=== PATIENT | female | born 1955 | race Caucasian/White ===

== ENCOUNTER → 2017-01-02 | Day surgery (SDC) | payer OTHER ==
[~2017-01-02] MED LIST: Dexamethasone 20 MG/5 ML VIAL ONE; Fentanyl 100 MCG/2 ML VIAL ONE; Ferric Subsulfate 8 ML BOT ONE; Lidocaine 2% PF 10 ML AMP (For Epidural Use) ONE; Meperidine HCl/PF 25 MG/ML VIAL ONE; Ondansetron HCl/PF 4 MG/2 ML Vial ONE; PHENYLEPHRINE-NS 100 MCG/ML 10 ML SYRINGE ONE; Propofol 200 MG/20 ML VIAL ONE; Succinylcholine Chloride 20 MG/ML 10 ml SYRINGE FS ONE; ePHEDrine/0.9% NaCl/PF SYRINGE 50 mg/10 ml ONE
--- NOTE | 2017-01-02 23:12 | OP ---
PREOPERATIVE DIAGNOSES: 1. Postmenopausal bleeding. 2. Endometrial polyp. POSTOPERATIVE DIAGNOSIS: Postmenopausal bleeding. PROCEDURES PERFORMED: 1. Exam under anesthesia. 2. Attempted hysteroscopy; however, unsuccessful as there is cervical stenosis inhibiting the advan cement of the hysteroscope into the uterine cavity. SURGEON: Alondra Brumfield D.O. COMPLICATIONS: None. ANESTHESIA: General. ESTIMATED BLOOD LOSS: 15 mL URINE OUTPUT: 50 mL prior to procedure. The hysteroscopic fluid deficit estimated to be approximat richard 500; however, the majority of the fluid was collected on the floor within the drapes, suspect mu ch less deficit than what was estimated. INDICATION FOR PROCEDURE: Ms. Deepthi Esqueda is a 61-year-old who presented to clinic with compla ints of postmenopausal bleeding. The patient underwent endometrial biopsy in clinic showing benign endometrial polyp due to postmenopausal status and diagnosis of endometrial polyp, a hysteroscopy wi th polypectomy and D\T\C was recommended. PROCEDURE IN DETAIL: The patient was brought to the operating room. She was placed under general a nesthesia. The patient was placed in dorsal lithotomy position. She was prepped and draped in ster ile fashion. An official timeout was performed. A single site speculum was placed in the vagina. The vaginal and cervical epithelium was noted to be atrophied. The cervix was grasped on the anteri or aspect and posterior aspect for stabilization. Using a tenaculum, the Mustapha dilators were inserte d into the cervical canal starting with the smallest available dilator. It did provide resistance i n the cervical canal. It did not feel like it was appropriately entered into the endometrium. It w ould only advance to approximately 4.5 or 5 cm. At this time, the hysteroscope was then used to skip luate the cervical canal and it appeared that there may be stenotic ostia noted at the internal aspe ct of the cervix. The hysteroscope was then removed and an additional attempt to dilate the interna l os was made using Mustapha dilators. It was felt that the Mustapha dilators did advance to approximately 6.5 cm with appreciable resistance. Therefore, the hysteroscope was then reinserted into the cervic al canal. A false passage was made to the cervical tissue and into the myometrium to allow for adva ncement approximately 7 cm; however, there was resistance appreciated. Due to the false passage and inability to correctly place the scope into the endometrial cavity, the procedure was aborted. The tenaculum was removed and the sites were hemostatic with the use of Monsel's. There were no compli cations. The uterine defect that was created was sounded to approximately 7 cm with resistance appr eciated; therefore not having concerns of a perforation. The speculum was removed from the vagina. The patient was placed back in supine position. She was extubated without difficulty. Vital signs remained stable and she was transferred to the PACU in hemostatically stable condition. This was b riefly explained to the patient regarding the inability to perform the planned procedure. We will h ave patient follow up with me in 1 week to review her options, potential surveillance with serial so nograms versus other surgical therapies. All counts were correct x2.
== END ==
LOC: SDC 09:41
PROVIDERS: ATTEND Obstetrics & Gynecology
PROC: 0UJD8ZZ Inspection of Uterus and Cervix, Via Natural or Artificial Opening Endoscopic (ICD-10-PCS; principal; 2017-01-02)
DX: N95.0 Postmenopausal bleeding (principal); N84.0 Polyp of corpus uteri; N88.2 Stricture and stenosis of cervix uteri; I10 Essential (primary) hypertension; E11.9 Type 2 diabetes mellitus without complications; E78.5 Hyperlipidemia, unspecified; E66.9 Obesity, unspecified; M54.9 Dorsalgia, unspecified; G89.29 Other chronic pain; M10.9 Gout, unspecified; Z79.4 Long term (current) use of insulin; Z79.899 Other long term (current) drug therapy; Z88.0 Allergy status to penicillin; Z98.51 Tubal ligation status; Z90.49 Acquired absence of other specified parts of digestive tract; Z98.890 Other specified postprocedural states
CPT/HCPCS: 36415; 36416; 86850; 86900; 86901; 96374; J1100; J2001; J2175; J2405; J2704; J3010

== ENCOUNTER 2018-03-30 12:39 | Emergency (ER) | payer OTHER, SELFPAY ==
[2018-03-30 14:26] LABS: #Eosinphils 0.1 thou/uL (0.0-0.7); #Lymphocytes 3.1 thou/uL (1.20-3.40); #Monocytes 0.7 thou/uL (0.11-0.59); #Neutrophils 9.9 thou/uL (1.40-6.50); %Basophils 0.1 % (0.0-1.0); %Eosinophils 0.7 % (0.0-10.0); %Lymphocytes 22.6 % (21.0-51.0); %Monocytes 5.2 % (0.0-10.0); %Neutrophils 71.4 % (42.0-75.0); Hemoglobin 11.1 g/dL (12.0-16.0); Mean Corpuscular HGB CONC 33.1 g/dL (32.0-36.0); Mean Corpuscular Hemoglobin 29.9 pg (27.0-31.0); Mean Corpuscular Volume 90.2 fL (78.0-98.0); Platelet Count 270 thou/uL (130-400); RBC Distribution Width 12.4 % (11.5-14.5); Red Blood Cell (RBC) Count 3.72 mill/uL (4.20-5.40); White Blood Cell (WBC) Count 13.9 thou/uL (4.8-10.8)
--- NOTE | 2018-03-30 14:36 | RAD ---
CHEST 1 VIEW: Date: 03/30/18 HISTORY: Productive cough with nasal congestion. COMPARISON: None. FINDINGS: Lungs are clear. No pneumothorax or effusion. Cardiac silhouette and mediastinal contours within norm al limits. Likely calcified granuloma projecting over the peripheral aspect of the left mid lung. IMPRESSION: No acute intrathoracic abnormality. POS: [facility]
[2018-03-30 14:50] LABS: ALT (SGPT) 18 U/L (8-55); AST (SGOT) 18 U/L (5-34); Albumin 3.8 g/dL (3.5-5.0); Alkaline Phosphatase 124 U/L (40-150); Anion Gap 17 mmol/L (10-20); BUN (Urea Nitrogen) 37 mg/dL (9.8-20.1); Bilirubin, Total 0.3 mg/dL (0.2-1.2); Calc. Creatinine Clearance 0 mL/min (70-130); Calcium 10.1 mg/dL (7.8-10.44); Carbon Dioxide 19 mmol/L (22-29); Chloride 101 mmol/L (98-107); Estimated GFR-MDRD 39; Globulin 4.9 g/dL (2.4-3.5); Glucose 478 mg/dL (70-105); Potassium 4.8 mmol/L (3.5-5.1); Protein, Total 8.7 g/dL (6.0-8.3); Sodium 132 mmol/L (136-145)
== END 2018-03-30 16:59 | disposition home or self-care (01) ==
LOC: ERS 12:39
DX: J06.9 Acute upper respiratory infection, unspecified (principal); E11.65 Type 2 diabetes mellitus with hyperglycemia; E11.40 Type 2 diabetes mellitus with diabetic neuropathy, unspecified; I10 Essential (primary) hypertension; N19 Unspecified kidney failure; F32.9 Major depressive disorder, single episode, unspecified; Z79.84 Long term (current) use of oral hypoglycemic drugs; Z79.899 Other long term (current) drug therapy
CPT/HCPCS: 36416; 71045; 80053; 82010; 85025; 87804; 96360; 96361

== ENCOUNTER 2018-10-07 07:54 | Outpatient (CLI) | payer MEDICARE, MEDICAID ==
--- NOTE | 2018-10-07 08:34 | MMO ---
Bilateral MAMMO Bilat Screen [facility]. CLINICAL HISTORY: Patient is 63 years old and is seen for screening. The patient has no family history of breast cancer. The patient has no personal history of cancer. VIEWS: The views performed were: bilateral craniocaudal with tomosynthesis and bilateral mediolateral oblique with tomosynthesis. FILMS COMPARED: The present examination has been compared to prior imaging studies performed at [facility] on 04/04/2016, and at [facility] on 03/22/2015. MAMMOGRAM FINDINGS: There are scattered fibroglandular densities. There are stable benign appearing calcifications seen in both breasts. There are no suspicious masses, suspicious calcifications, or new areas of architectural distortion. IMPRESSION: THERE IS NO MAMMOGRAPHIC EVIDENCE OF MALIGNANCY. A ROUTINE FOLLOW-UP MAMMOGRAM IN 1 YEAR IS RECOMMENDED. THE RESULTS OF THIS EXAM WERE SENT TO THE PATIENT. ACR BI-RADS Category 2 - Benign finding MAMMOGRAPHY NOTE: 1. A negative mammogram report should not delay a biopsy if a dominant of clinically suspicious mass is present. 2. Approximately 10% to 15% of breast cancers are not detected by mammography. 3. Adenosis and dense breasts may obscure an underlying neoplasm. Reported by: PAIGE FOX MD Electonically Signed: [id number]
== END 2018-10-07 07:55 | disposition home or self-care (01) ==
LOC: BICMAMMO 07:54
DX: Z12.31 Encounter for screening mammogram for malignant neoplasm of breast (principal)
CPT/HCPCS: 77063; 77067

== ENCOUNTER 2019-12-28 12:45 | Outpatient (CLI) | payer MEDICARE ==
[2019-12-28] MEDS ORDERED: EPINEPHrine 1 MG/ML AMP ONE (13:00)
[2019-12-28] MEDS ORDERED: Lidocaine 1% PF 10 ML AMP ONE (13:00)
[2019-12-28] MEDS ORDERED: Iopamidol 300 61% 50 ML VIAL FS ONE (13:00)
--- NOTE | 2019-12-28 15:29 | RAD ---
Arthrogram left shoulder HISTORY: Shoulder pain. Internal derangement. FINDINGS: After explaining the procedure and answering all questions, the anterior aspect the left sh oulder was prepped and draped in usual sterile fashion. Sterile technique, buffered local anesthesia, fluoroscopic guidance, and an anterior approach were us ed to carefully advance the tip of a 22-gauge spinal needle to the joint capsule at the level of the humeral head. Approximately 8 cc of a liquid mixture containing normal saline, 1% lidocaine, and iodinated contrast was carefully instilled into the joint capsule under fluoroscopic control. Needle was removed. Contrast immediately extended into the subacromial bursa. Patient tolerated the procedure well and was transferred to CT in good condition for further imaging. IMPRESSION : Technically successful left shoulder arthrogram. Full-thickness rotator cuff tear. CT is pending.
--- NOTE | 2019-12-28 16:29 | CT ---
CT ARTHROGRAM OF THE LEFT SHOULDER: 12/28/19 INDICATION: History of left rotator cuff tear. COMPARISON: Left shoulder arthrogram images dated 12/28/19. TECHNIQUE: Multiple CT images were obtained of the left shoulder following intra-articular administration of dil lj Isovue solution. 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 There is a full thickness tear involving the mid to posterio r supraspinatus measuring approximately 1.8 x 1.7 cm greatest mediolateral AP dimensions respectively . There is moderate tendinosis of the supraspinatus and infraspinatus. There is partial thickness art icular surface tear extending into the anterior infraspinatus at the footprint measuring 1.3 x 0.8 cm greatest AP and mediolateral dimensions respectively. There is mild glenohumeral chondrosis. There i s mild muscular atrophy of the supraspinatus. Subscapularis appears intact. The biceps tendon appears located in the bicipital groove. No large paralabral cyst is grossly evident. No definite intra-nikki cular body is evident. The visualized left lung is clear except for a calcified granuloma in the supe rior lingula. There are calcified lymph nodes within the left hilar region and mediastinum. IMPRESSION: 1. Full thickness tear of the mid to posterior supraspinatus with partial thickness articular koch rface extension into the anterior infraspinatus. There is mild muscular atrophy of the supraspinatus. 2. Mild glenohumeral chondrosis with severe AC joint osteoarthrosis. POS: BH
== END 2019-12-28 12:46 | disposition home or self-care (01) ==
LOC: RAD 12:45
PROVIDERS: ATTEND Orthopaedic Surgery
DX: M75.122 Complete rotator cuff tear or rupture of left shoulder, not specified as traumatic (principal); M19.012 Primary osteoarthritis, left shoulder
CPT/HCPCS: 23350; J0171; J2001; Q9967